=== PATIENT | male | born 1960 | race Caucasian/White ===

== ENCOUNTER → 2017-02-04 | Outpatient (CLI) | payer BC ==
--- NOTE | 2017-02-04 10:01 | DI ---
MRI LOW EXTREMITY JNT W/O CN,02/04/2017 7:05 AM: Clinical History: Left knee pain Previous Exam: None at this facility. Findings: Multiplanar MR images are obtained through the left knee without contrast. Bony alignment is anatomic . No fractures are seen. Marrow signal is preserved. There is thinning of the articular cartilage thr oughout worst within the medial compartment. The anterior and posterior cruciate ligaments are intact. The medial and lateral collateral ligaments are also intact. There is a complex tear of the posterior horn and body of the medial meniscus. The lateral meniscus is also intact. The major vascular flow voids are unremarkable. Signal within the musculature is unremarkable. The popliteus tendon is unremarkable except for a small associated ganglion cyst. There is no Martinez's cyst, and there is no knee joint effusion. Surrounding soft tissues are unremarkable. Impression: A complex tear of the posterior horn and body of the medial meniscus. 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 Ganglion cyst of the popliteus tendon.
== END ==
LOC: MRI 06:56
PROVIDERS: ATTEND Family Medicine
DX: M25.562 Pain in left knee (principal); S83.232A Complex tear of medial meniscus, current injury, left knee, initial encounter; M94.262 Chondromalacia, left knee; M67.462 Ganglion, left knee
CPT/HCPCS: 73721

== ENCOUNTER → 2017-02-10 | Outpatient (CLI) | payer BC ==
--- NOTE | 2017-02-11 06:31 | DI ---
XR KNEE CMPT 4 OR MORE VWS, XR KNEE CMPT 4 OR MORE VWS,02/10/2017 1:42 PM: Clinical History: Bilateral knee pain. Previous Exam: None at this facility. Findings: AP standing, and notch views, lateral views and sunrise views are obtained of both knees, and demonst rate symmetric loss of joint space within the medial compartment. There is no knee joint effusion. No fractures are seen. Impression: Symmetric loss of medial joint space most consistent with early osteoarthritis.
== END ==
LOC: ORTHO 13:55
PROVIDERS: ATTEND Orthopaedic Surgery
DX: M25.561 Pain in right knee (principal); M25.562 Pain in left knee; M17.0 Bilateral primary osteoarthritis of knee
CPT/HCPCS: 73564

== ENCOUNTER 2017-02-24 08:47 | Day surgery (SDC) | payer BC ==
[~2017-02-24 08:47] MED LIST: LIDOCAINE W/ SODIUM BICARB 0.5 ML SYR ONE; Lactated Ringers 1,000 ML PRIMARY IV ONE; fentaNYL Inj 100 MCG/2 ML VIAL ONE
[2017-02-24 09:42] VITALS: RESP 14
--- NOTE | 2017-02-24 10:16 | GEN.OPNOTE ---
Colonoscopy Procedure Note Surgery Date: 02/24/17 Preoperative Diagnosis: Personal history of colon polyps. Family history of colon cancer. Postoperative Diagnosis: Same. 2 small polyps removed. One in the cecum and one in the rectum. Procedure: Complete colonoscopy and biopsy and destruction of 2 small polyps. Surgeon: Darion Alfredo MD Anesthesia Provider: Tano Norris CRNA Anesthesia Type: MAC Indications: See preoperative diagnosis. Findings: Prep : [Excellent] Cecum : [Small polyp biopsied and destroyed. Otherwise normal.] Ascending : [Normal] Transverse : [Normal] Sigmoid : [Normal] Rectum : [Small polyp biopsied and destroyed. Otherwise normal.] Digital Rectal Exam : [Prostate of normal size and consistency and nonnodular. No perianal pathology.] A lubricated flexible colonoscope was inserted and passed to the blind end of the cecum. A small polyp was removed from the cecum with piecemeal fashion with the biopsy forceps. Hemostasis was assured. Otherwise the cecum was unremarkable. The ascending colon, hepatic flexure, transverse colon, splenic flexure, descending colon, and sigmoid colon were all unremarkable. There is a small rectal polyp which is biopsied and destroyed. Hemostasis was assured. The scope was withdrawn through the remainder of a normal rectum and withdrawn completing the procedure. Patient tolerated all aspects of the procedure well without complication. He was taken to outpatient surgery in stable condition. Follow-up will be in my office on an as-needed basis. We will call the biopsy results when available and plan therapy and follow-up accordingly.
[2017-02-24 10:50] VITALS: TEMP 97.5
== END 2017-02-24 10:32 | disposition home or self-care (01) ==
LOC: SDSC 08:47
PROVIDERS: ATTEND Surgery
DX: Z86.010 Personal history of colon polyps (principal); Z80.0 Family history of malignant neoplasm of digestive organs; K63.5 Polyp of colon; D12.0 Benign neoplasm of cecum
CPT/HCPCS: 45384; J2704; J3010; J7120